=== PATIENT | male | born 1985 | race Caucasian/White ===

== ENCOUNTER 2019-05-28 17:35 | Emergency (ER) | payer OTHER ==
[~2019-05-28] VITALS: Ht 175.3 cm; Wt 99.8 kg
== END 2019-05-28 21:20 | disposition home or self-care (01) ==
LOC: ER 17:35
DX: M54.5 Low back pain (principal)

== ENCOUNTER 2019-06-21 18:29 | Emergency (ER) | payer OTHER ==
[~2019-06-21] VITALS: Ht 172.7 cm; Wt 99.8 kg
== END 2019-06-21 22:27 | disposition home or self-care (01) ==
LOC: ER 18:29
DX: J06.9 Acute upper respiratory infection, unspecified (principal); R01.2 Other cardiac sounds